=== PATIENT | male | born 1960 | race Caucasian/White ===

== ENCOUNTER 2017-02-12 11:13 | Inpatient (IN) | payer MEDICAID ==
[~2017-02-12] VITALS: Ht 177.8 cm; Wt 67.9 kg
[~2017-02-12 11:13] MED LIST: ALBU18HF INH; ALBU6.7H; AMLO5TAB4 PO; ASPI-621 PO; BACL-19 PO; CLOP75TA22 PO; FERR325T20 PO; FUROCET; GABA100C8 PO; GABA400C PO; GABA800T2 PO; IBUP200T5 PO; LISI-167 PO; LISI-170 PO; METH-356 PO; METH40TA3 PO; METO25TA91 PO; METR500T PO; MORP15TA3; MORP15TA3 PO; OXYC10TA6 PO; SERT100T PO; TOPAMAX; TOPI200T25 PO; TOPI50TA35 PO
[2017-02-12] MEDS ORDERED: ONDANSETRON 2MG/ML, 2ML IVPush ONE (12:30)
[2017-02-12] MEDS ORDERED: SODIUM CHLORIDE 0.9% 1,000ML IVBOLUS ONE (12:30)
[2017-02-12] MEDS ORDERED: SODIUM CHLORIDE FLUSH 10ML SYR IVF ONE (12:30)
[2017-02-12 12:44] LABS: BLOOD UREA NITROGEN 12 mg/dL (7-18)
[2017-02-12] MEDS ORDERED: ONDANSETRON 2MG/ML, 2ML ONE (12:58)
[2017-02-12] MEDS ORDERED: TAMS-11 PO (13:13)
[2017-02-12] MEDS ORDERED: [UNRECOGNIZED DRUG - OTHER] PO (13:13)
[2017-02-12] MEDS ORDERED: POTASSIUM CHLORIDE 20 MEQ TAB.ER.PRT PO ONE (13:30)
[2017-02-12] MEDS ORDERED: NS + 40MEQ KCL 1,000 ML IV SCH (13:30)
[2017-02-12] MEDS ORDERED: NS + 40MEQ KCL 1,000 ML IV ONE (13:36)
[2017-02-12] MEDS ORDERED: POTASSIUM CHLORIDE 20 MEQ TAB.ER.PRT ONE (13:36)
[2017-02-12 13:52] LABS: IS PT STATUS REG ER OR PRE ER? YES
[2017-02-12] MEDS ORDERED: NICOTINE 7 MG/24 HR PATCH.TD24 TD SCH (15:00)
[2017-02-12] MEDS ORDERED: ACETAMINOPHEN 325 MG TABLET PO PRN (15:00)
[2017-02-12] MEDS ORDERED: ONDANSETRON 2MG/ML, 2ML IVP PRN (15:00)
[2017-02-12] MEDS ORDERED: ENOXAPARIN 40 MG/0.4 ML SQ SCH (15:00)
[2017-02-12] MEDS ORDERED: hydrALAzine 20 MG/ML, 1ML IV PRN (15:30)
[2017-02-12] MEDS ORDERED: hydrOXyzine 10MG TABLET PO PRN (15:30)
[2017-02-12] MEDS ORDERED: GABAPENTIN 100 MG CAPSULE PO SCH (16:00)
[2017-02-12] MEDS: BACLOFEN 10 MG TABLET PO SCH ×2 (16:00→23:17)
[2017-02-12] MEDS ORDERED: hydrALAzine 20 MG/ML, 1ML ONE (16:35)
[2017-02-12] MEDS: POTASSIUM CHLORIDE 20 MEQ TAB.ER.PRT PO SCH (17:22)
[2017-02-12] MEDS: POTASSIUM CHLORIDE 40 MEQ in LACTATED RINGERS 1,000 ML IV SCH (17:23)
[2017-02-12] MEDS: LORazepam 2 MG/ML, 1ML IVPush PRN (17:23)
[2017-02-12] MEDS: GABAPENTIN 400 MG CAPSULE PO SCH ×2 (18:03→23:17)
[2017-02-12 18:29] VITALS: BP 138/88
[2017-02-12 19:32] LABS: IS PT STATUS REG ER OR PRE ER? NO
[2017-02-12] MEDS: TOPIRAMATE 100 MG TABLET PO SCH (23:17)
[2017-02-13 00:21] LABS: DAU SCREEN DISCLAIMER
[2017-02-13] MEDS: POTASSIUM CHLORIDE 40 MEQ in LACTATED RINGERS 1,000 ML IV SCH ×2 (00:47→08:30)
[2017-02-13] MEDS: LORazepam 2 MG/ML, 1ML IVPush PRN ×2 (00:47→11:09)
[2017-02-13 01:07] VITALS: BP 152/90
[2017-02-13 01:28] LABS: IS PT STATUS REG ER OR PRE ER? NO
[2017-02-13 05:35] LABS: HEMOGLOBIN 14.4 g/dL (13.7-18.0)
[2017-02-13 05:57] LABS: ASPARTATE AMINO TRANSFERASE 31 U/L (15-37); BLOOD UREA NITROGEN 9 mg/dL (7-18)
[2017-02-13] MEDS ORDERED: METOPROLOL SUCCINATE 25 MG TAB.ER.24H PO SCH (06:00)
[2017-02-13 07:21] VITALS: BP 154/100
[2017-02-13 08:36] LABS: IS PT STATUS REG ER OR PRE ER? NO
[2017-02-13] MEDS: POTASSIUM CHLORIDE 20 MEQ TAB.ER.PRT PO SCH (08:55)
[2017-02-13] MEDS: GABAPENTIN 400 MG CAPSULE PO SCH (08:55)
[2017-02-13] MEDS: TOPIRAMATE 100 MG TABLET PO SCH (08:55)
[2017-02-13] MEDS: BACLOFEN 10 MG TABLET PO SCH (08:55)
[2017-02-13] MEDS ORDERED: TAMSULOSIN 0.4 MG CAP.ER.24H PO SCH (09:00)
[2017-02-13] MEDS ORDERED: SERTRALINE 100MG TABLET PO SCH (09:00)
[2017-02-13] MEDS ORDERED: LISINOPRIL 10 MG TABLET PO SCH (09:00)
[2017-02-13 13:42] LABS: IS PT STATUS REG ER OR PRE ER? NO
== END 2017-02-13 13:30 | disposition left against medical advice (07) | DRG 894 ==
LOC: ED 13:26 → EDIP 14:07 → 4EST 16:10
PROVIDERS: ADMIT Hospitalist; ATTEND Hospitalist
DX: F11.23 Opioid dependence with withdrawal (principal); M62.82 Rhabdomyolysis; D72.829 Elevated white blood cell count, unspecified; E86.0 Dehydration; E87.6 Hypokalemia; F32.9 Major depressive disorder, single episode, unspecified; G40.909 Epilepsy, unspecified, not intractable, without status epilepticus; G89.29 Other chronic pain; H54.42 Blindness, left eye, normal vision right eye; I12.9 Hypertensive chronic kidney disease with stage 1 through stage 4 chronic kidney disease, or unspecified chronic kidney disease; N18.9 Chronic kidney disease, unspecified; I25.10 Atherosclerotic heart disease of native coronary artery without angina pectoris; N40.0 Benign prostatic hyperplasia without lower urinary tract symptoms; F17.210 Nicotine dependence, cigarettes, uncomplicated; R29.6 Repeated falls; M54.2 Cervicalgia; R55 Syncope and collapse; M54.9 Dorsalgia, unspecified; G43.909 Migraine, unspecified, not intractable, without status migrainosus; Z53.21 Procedure and treatment not carried out due to patient leaving prior to being seen by health care provider; B19.20 Unspecified viral hepatitis C without hepatic coma; I51.89 Other ill-defined heart diseases; Z79.899 Other long term (current) drug therapy; Z56.0 Unemployment, unspecified; Z83.3 Family history of diabetes mellitus; Z88.2 Allergy status to sulfonamides; Z88.8 Allergy status to other drugs, medicaments and biological substances; Z88.6 Allergy status to analgesic agent; Z88.0 Allergy status to penicillin; Z91.013 Allergy to seafood
CPT/HCPCS: 36415; 70450; 70551; 71010; 80048; 80053; 80307; 82040; 83735; 84100; 84132; 84484; 85025; 87324; 93005; 93306; 96361; 96374; J1650; J2405; J3480; J0360; J2060; J7030; J7120

== ENCOUNTER 2017-04-08 15:20 | Inpatient (IN) | payer MEDICAID ==
[~2017-04-08] VITALS: Ht 177.8 cm; Wt 67.0 kg
[~2017-04-08 15:20] MED LIST changes: +TAMS-11 PO; +[UNRECOGNIZED DRUG - OTHER] PO
[2017-04-08] MEDS ORDERED: SODIUM CHLORIDE FLUSH 10ML SYR IVF ONE ×2 (16:00→17:30)
[2017-04-08] MEDS ORDERED: NITROGLYCERIN SINGLE TAB 0.4 MG SL PRN (16:00)
[2017-04-08] MEDS ORDERED: ASPIRIN 81 MG TABLET CHEW PO ONE (16:00)
[2017-04-08] MEDS ORDERED: SODIUM CHLORIDE 0.9% 1,000ML IVBOLUS ONE (16:00)
[2017-04-08] MEDS ORDERED: NITROGLYCERIN SINGLE TAB 0.4 MG SL ONE (16:15)
[2017-04-08] MEDS ORDERED: ASPIRIN 81 MG TABLET CHEW ONE (16:16)
[2017-04-08 16:43] LABS: BLOOD UREA NITROGEN 9 mg/dL (7-18)
[2017-04-08 16:50] LABS: IS PT STATUS REG ER OR PRE ER? YES
[2017-04-08] MEDS ORDERED: ONDANSETRON 2MG/ML, 2ML IVPush PRN (18:00)
[2017-04-08] MEDS ORDERED: METOCLOPRAMIDE 5 MG/ML, 2ML IVPush ONE (18:00)
[2017-04-08] MEDS ORDERED: NITROGLYCERIN 0.4 MG BOTTLE (25 TABS) SL PRN (18:00)
[2017-04-08] MEDS ORDERED: BISACODYL 10 MG SUPP PR PRN (18:00)
[2017-04-08] MEDS ORDERED: POLYETHYLENE GLYCOL 17 GM PACKET PO PRN (18:00)
[2017-04-08] MEDS ORDERED: DIPHENHYDRAMINE 50 MG/ML, 1ML IVPush ONE (18:00)
[2017-04-08] MEDS ORDERED: ACETAMINOPHEN 325 MG TABLET PO PRN (18:00)
[2017-04-08] MEDS ORDERED: morphine SULFATE 10 MG/ML, 1ML ONE (18:34)
[2017-04-08] MEDS: morphine SULFATE 10 MG/ML, 1ML IVPush PRN ×2 (18:38→23:23)
[2017-04-08] MEDS ORDERED: ALBUTEROL SULFATE 2.5 MG/3 ML HHN PRN (19:30)
[2017-04-08 20:36] VITALS: BP 147/91
[2017-04-08] MEDS: GABAPENTIN 400 MG CAPSULE PO SCH ×2 (21:00→21:01)
[2017-04-08] MEDS: TOPIRAMATE 100 MG TABLET PO SCH (21:01)
[2017-04-08] MEDS: LISINOPRIL 10 MG TABLET PO SCH (21:01)
[2017-04-08] MEDS: BACLOFEN 10 MG TABLET PO SCH ×2 (21:02→21:07)
[2017-04-08] MEDS: HEPARIN 5,000 UNITS/ML, 1ML SQ SCH (21:03)
[2017-04-08] MEDS: NICOTINE 14MG/24 HR PATCH.TD24 TD SCH (21:03)
[2017-04-08 21:10] VITALS: BP 147/91
[2017-04-08] MEDS: SODIUM CHLORIDE FLUSH 3ML SYRINGE IVF SCH (21:40)
[2017-04-08 22:58] LABS: IS PT STATUS REG ER OR PRE ER? NO
[2017-04-09 02:24] VITALS: BP 146/86
[2017-04-09 04:22] LABS: IS PT STATUS REG ER OR PRE ER? NO
[2017-04-09] MEDS: HEPARIN 5,000 UNITS/ML, 1ML SQ SCH ×3 (04:37→21:10)
[2017-04-09] MEDS: morphine SULFATE 10 MG/ML, 1ML IVPush PRN (04:37)
[2017-04-09] MEDS: ASPIRIN 81 MG TABLET EC PO SCH (04:37)
[2017-04-09 06:30] VITALS: BP 144/91
[2017-04-09] MEDS: METOPROLOL SUCCINATE 25 MG TAB.ER.24H PO SCH (06:37)
[2017-04-09] MEDS ORDERED: METHADONE 10 MG TABLET PO SCH (09:00)
[2017-04-09] MEDS ORDERED: LISINOPRIL 10 MG TABLET PO SCH (09:00)
[2017-04-09] MEDS: SENNA/DOCUSATE TABLET PO SCH (09:00)
[2017-04-09] MEDS ORDERED: OXYcodone IR 5MG TABLET PO PRN (10:00)
[2017-04-09] MEDS: TAMSULOSIN 0.4 MG CAP.ER.24H PO SCH (10:09)
[2017-04-09] MEDS: GABAPENTIN 400 MG CAPSULE PO SCH ×3 (10:09→21:09)
[2017-04-09] MEDS: BACLOFEN 10 MG TABLET PO SCH ×3 (10:09→22:00)
[2017-04-09] MEDS: TOPIRAMATE 100 MG TABLET PO SCH ×2 (10:09→21:10)
[2017-04-09] MEDS: SERTRALINE 100MG TABLET PO SCH (10:09)
[2017-04-09] MEDS: SODIUM CHLORIDE FLUSH 3ML SYRINGE IVF SCH ×2 (10:10→21:00)
[2017-04-09 10:52] VITALS: BP 128/91
[2017-04-09] MEDS: LISINOPRIL 10 MG TABLET PO SCH ×2 (10:53→21:10)
[2017-04-09] MEDS ORDERED: REGADENOSON 0.4 MG/5 ML SYRINGE ONE (12:22)
[2017-04-09] MEDS ORDERED: OMNIPAQUE 350 MG/ML, 100ML BOTTLE ONE (14:25)
[2017-04-09] MEDS ORDERED: OXYcodone IR 5MG TABLET ONE (14:29)
[2017-04-09 14:33] VITALS: BP 100/68
[2017-04-09] MEDS: OXYcodone IR 5MG TABLET PO PRN ×2 (14:34→19:29)
[2017-04-09 18:56] VITALS: BP 116/73
[2017-04-09] MEDS ORDERED: ATORVASTATIN 20 MG TABLET PO SCH (21:00)
[2017-04-09] MEDS: NICOTINE 14MG/24 HR PATCH.TD24 TD SCH (21:11)
[2017-04-09] MEDS: CIPROFLOXACIN/HYDROCORTISONE EAR SUSP 0.2-1%, 10ML LEFT EAR SCH (22:00)
[2017-04-10 01:24] VITALS: BP 99/67
[2017-04-10] MEDS: OXYcodone IR 5MG TABLET PO PRN ×3 (01:26→09:37)
[2017-04-10] MEDS: METOPROLOL SUCCINATE 25 MG TAB.ER.24H PO SCH ×2 (05:09→05:26)
[2017-04-10] MEDS: ASPIRIN 81 MG TABLET EC PO SCH (05:16)
[2017-04-10] MEDS: HEPARIN 5,000 UNITS/ML, 1ML SQ SCH (05:17)
[2017-04-10 05:19] VITALS: BP 118/80
[2017-04-10 08:30] VITALS: BP 104/73
[2017-04-10] MEDS: SENNA/DOCUSATE TABLET PO SCH (09:00)
[2017-04-10] MEDS: SODIUM CHLORIDE FLUSH 3ML SYRINGE IVF SCH (09:00)
[2017-04-10] MEDS: CIPROFLOXACIN/HYDROCORTISONE EAR SUSP 0.2-1%, 10ML LEFT EAR SCH (09:32)
[2017-04-10] MEDS: GABAPENTIN 400 MG CAPSULE PO SCH (09:32)
[2017-04-10] MEDS: BACLOFEN 10 MG TABLET PO SCH (09:33)
[2017-04-10] MEDS: LISINOPRIL 10 MG TABLET PO SCH (09:33)
[2017-04-10] MEDS: TOPIRAMATE 100 MG TABLET PO SCH (09:34)
[2017-04-10] MEDS: TAMSULOSIN 0.4 MG CAP.ER.24H PO SCH (09:34)
[2017-04-10] MEDS: SERTRALINE 100MG TABLET PO SCH (09:35)
[2017-04-10] MEDS ORDERED: ASPI-621 PO (10:27)
[2017-04-10] MEDS ORDERED: OXYC5TAB3 PO (10:27)
[2017-04-10] MEDS ORDERED: CIPR10DR LEFT EAR (10:27)
[2017-04-10] MEDS ORDERED: NICO1PAT4 TD (10:27)
[2017-04-10] MEDS ORDERED: ATOR20TA9 PO (10:27)
[2017-04-10] MEDS ORDERED: GUAI600T53 PO (10:28)
[2017-04-10] MEDS ORDERED: SODI104S3 INH (10:28)
== END 2017-04-10 13:10 | disposition home or self-care (01) | DRG 303 ==
LOC: ED 17:19 → EDIP 17:48 → 5SO 19:09 → 3NE 04-09 18:53
PROVIDERS: ADMIT Internal Medicine; ATTEND Internal Medicine
DX: I25.10 Atherosclerotic heart disease of native coronary artery without angina pectoris (principal); M62.82 Rhabdomyolysis; F11.20 Opioid dependence, uncomplicated; N40.0 Benign prostatic hyperplasia without lower urinary tract symptoms; G40.909 Epilepsy, unspecified, not intractable, without status epilepticus; F32.9 Major depressive disorder, single episode, unspecified; G89.29 Other chronic pain; M54.2 Cervicalgia; I10 Essential (primary) hypertension; G43.909 Migraine, unspecified, not intractable, without status migrainosus; H54.42 Blindness, left eye, normal vision right eye; H60.92 Unspecified otitis externa, left ear; J06.9 Acute upper respiratory infection, unspecified; F17.210 Nicotine dependence, cigarettes, uncomplicated; H93.19 Tinnitus, unspecified ear; Z79.899 Other long term (current) drug therapy; Z88.6 Allergy status to analgesic agent; Z83.3 Family history of diabetes mellitus; Z88.1 Allergy status to other antibiotic agents; Z88.5 Allergy status to narcotic agent; Z88.0 Allergy status to penicillin; Z88.2 Allergy status to sulfonamides; Z88.8 Allergy status to other drugs, medicaments and biological substances
CPT/HCPCS: 36415; 70498; 71010; 78452; 80048; 80061; 82040; 84439; 84443; 84484; 85025; 93005; 93017; 96360; 96361; J1644; J2785; Q9967; A9502; C9898; J1200; J2270; J2765; J7030

== ENCOUNTER 2017-08-20 09:35 | Emergency (ER) | payer MEDICAID ==
[~2017-08-20] VITALS: Ht 177.8 cm; Wt 61.0 kg
[~2017-08-20 09:35] MED LIST changes: +ATOR20TA9 PO; +CIPR10DR LEFT EAR; -CLOP75TA22 PO; +CLOP75TA52 PO; +FERR325T18 PO; -FERR325T20 PO; +GABA-826 PO; -GABA100C8 PO; +GUAI600T80 PO; +IBUP-1484 PO; -IBUP200T5 PO; +NICO-486 TD; +OXYC5TAB3 PO; +SODI104S3 INH
[2017-08-20 09:38] VITALS: BP 128/78
[2017-08-20] MEDS ORDERED: HYDROcodone/APAP 5/325 TABLET ONE (10:19)
[2017-08-20] MEDS ORDERED: HYDROcodone/APAP 5/325 TABLET PO ONE (10:30)
== END 2017-08-20 10:53 | disposition home or self-care (01) ==
LOC: ED 10:30
DX: S60.512A Abrasion of left hand, initial encounter (principal); I10 Essential (primary) hypertension; J44.9 Chronic obstructive pulmonary disease, unspecified; G89.29 Other chronic pain; Z88.0 Allergy status to penicillin; X58.XXXA Exposure to other specified factors, initial encounter; Y93.89 Activity, other specified; Y92.89 Other specified places as the place of occurrence of the external cause; Y99.8 Other external cause status
CPT/HCPCS: 99283

== ENCOUNTER 2017-08-28 21:25 | Emergency (ER) | payer MEDICAID ==
[~2017-08-28] VITALS: Ht 177.8 cm; Wt 64.2 kg
[2017-08-28] MEDS ORDERED: LIDOCAINE 1%, 20ML ONE (22:51)
[2017-08-28] MEDS ORDERED: HYDROcodone/APAP 5/325 TABLET ONE (22:51)
[2017-08-28] MEDS ORDERED: CLINDAMYCIN 150 MG/ML, 6ML IM ONE (23:00)
[2017-08-28] MEDS ORDERED: LIDOCAINE 1%, 10ML INFIL ONE (23:00)
[2017-08-28] MEDS ORDERED: HYDROcodone/APAP 5/325 TABLET PO ONE (23:00)
[2017-08-28 23:17] VITALS: BP 129/94
== END 2017-08-28 23:52 | disposition home or self-care (01) ==
LOC: ED 22:22
DX: L02.416 Cutaneous abscess of left lower limb (principal); I11.9 Hypertensive heart disease without heart failure; I25.10 Atherosclerotic heart disease of native coronary artery without angina pectoris
CPT/HCPCS: 10060; 96372; 99283

== ENCOUNTER 2017-12-07 10:55 | Emergency (ER) | payer MEDICAID ==
[~2017-12-07] VITALS: Ht 177.8 cm; Wt 59.6 kg
[2017-12-07 10:56] VITALS: BP 135/80
[2017-12-07] MEDS ORDERED: ALBUTEROL/IPRATROPIUM 2.5MG/0.5MG, 3 ML NPPB ONE (11:30)
[2017-12-07 12:02] LABS: BASOPHILS # (AUTO) 0.04 x10^3/uL (0-0.1); BASOPHILS % (AUTO) 0 % (0-1); EOSINOPHILS # (AUTO) 0.11 x10^3/uL (0-0.4); EOSINOPHILS % (AUTO) 1 % (1-7); LYMPHOCYTES # (AUTO) 1.92 x10^3/uL (1-3.4); LYMPHOCYTES % (AUTO) 17 % (22-44); MD NO; MEAN CORPUSCULAR HEMOGLOBIN 30.9 pg (27.5-34.5); MEAN CORPUSCULAR HGB CONC 33.7 g/dL (33.2-36.2); MEAN CORPUSCULAR VOLUME 91.7 fL (81-97); MEAN PLATELET VOLUME 7.4 fL (7.4-10.4); MONOCYTES # (AUTO) 1.39 x10^3/uL (0.2-0.8); MONOCYTES % (AUTO) 12 % (2-9); NEUTROPHILS # (AUTO) 8.14 x10^3/uL (1.8-6.8); NEUTROPHILS % (AUTO) 70 % (42-75); PLATELET COUNT 299 x10^3/uL (130-400); RED BLOOD COUNT 4.55 x10^6/uL (4.38-5.82); RED CELL DISTRIBUTION WIDTH 13.7 % (9.4-14.8)
[2017-12-07 12:14] LABS: ALBUMIN 3.4 g/dL (3.4-5.0); ANION GAP 8 mmol/L (5-15); CALCIUM 8.7 mg/dL (8.5-10.1); CHLORIDE 99 mmol/L (98-107)
[2017-12-07 12:18] LABS: ALANINE AMINOTRANSFERASE 47 U/L (12-78); ALKALINE PHOSPHATASE 114 U/L (45-117); BILIRUBIN,TOTAL 0.7 mg/dL (0.2-1.0); CREATININE 2.24 mg/dL (0.7-1.3); TOTAL PROTEIN 7.9 g/dL (6.4-8.2)
[2017-12-07] MEDS ORDERED: ALBUTEROL/IPRATROPIUM 2.5MG/0.5MG, 3 ML ONE (12:30)
[2017-12-07 12:38] LABS: RAPID INFLUENZA A Negative (Negative); RAPID INFLUENZA B Negative (Negative)
[2017-12-07] MEDS ORDERED: AZITHROMYCIN 500 MG TABLET PO ONE (13:00)
[2017-12-07] MEDS ORDERED: DOXYCYCLINE 100MG TABLET PO ONE (13:00)
[2017-12-07] MEDS ORDERED: AZITHROMYCIN 250 MG TABLET ONE (13:18)
[2017-12-07] MEDS ORDERED: DOXYCYCLINE 100MG TABLET ONE (13:19)
== END 2017-12-07 13:57 | disposition home or self-care (01) ==
LOC: ED 13:51
DX: J18.9 Pneumonia, unspecified organism (principal); J44.0 Chronic obstructive pulmonary disease with (acute) lower respiratory infection; I10 Essential (primary) hypertension; G89.29 Other chronic pain; G43.909 Migraine, unspecified, not intractable, without status migrainosus; I25.10 Atherosclerotic heart disease of native coronary artery without angina pectoris; I95.9 Hypotension, unspecified; F17.200 Nicotine dependence, unspecified, uncomplicated; G62.9 Polyneuropathy, unspecified; Z88.0 Allergy status to penicillin
CPT/HCPCS: 36415; 71046; 80053; 83690; 85025; 87400; 94640; 99285; J7620

== ENCOUNTER 2018-07-31 13:42 | Observation (INO) | payer MEDICAID ==
[~2018-07-31] VITALS: Ht 177.8 cm; Wt 65.0 kg
[2018-07-31] MEDS ORDERED: HYDROcodone/APAP 5/325 TABLET ONE (13:58)
[2018-07-31] MEDS ORDERED: HYDROcodone/APAP 5/325 TABLET PO ONE (14:00)
[2018-07-31 14:25] LABS: BASOPHILS # (AUTO) 0.16 x10^3/uL (0-0.1); BASOPHILS % (AUTO) 2 % (0-1); EOSINOPHILS # (AUTO) 0.23 x10^3/uL (0-0.4); EOSINOPHILS % (AUTO) 2 % (1-7); LYMPHOCYTES # (AUTO) 3.17 x10^3/uL (1-3.4); LYMPHOCYTES % (AUTO) 33 % (22-44); MD NO; MEAN CORPUSCULAR HEMOGLOBIN 32.8 pg (27.5-34.5); MEAN CORPUSCULAR VOLUME 96.3 fL (81-97); MEAN PLATELET VOLUME 7.8 fL (7.4-10.4); MONOCYTES # (AUTO) 1.12 x10^3/uL (0.2-0.8); MONOCYTES % (AUTO) 12 % (2-9); NEUTROPHILS # (AUTO) 5.05 x10^3/uL (1.8-6.8); NEUTROPHILS % (AUTO) 52 % (42-75); PLATELET COUNT 209 x10^3/uL (130-400); RED BLOOD COUNT 4.08 x10^6/uL (4.38-5.82); RED CELL DISTRIBUTION WIDTH 15.6 % (9.4-14.8)
[2018-07-31 14:34] LABS: ALANINE AMINOTRANSFERASE 199 U/L (12-78); ALBUMIN 3.1 g/dL (3.4-5.0); ANION GAP 6 mmol/L (5-15); CALCIUM 8.6 mg/dL (8.5-10.1); CHLORIDE 111 mmol/L (98-107); CREATININE 0.93 mg/dL (0.7-1.3)
[2018-07-31 14:36] LABS: ALKALINE PHOSPHATASE 101 U/L (45-117); BILIRUBIN,TOTAL 0.4 mg/dL (0.2-1.0); TOTAL PROTEIN 7.4 g/dL (6.4-8.2)
[2018-07-31 14:37] LABS: ACETAMINOPHEN < 2 mcg/mL (10-30); SALICYLATE LEVEL < 1.7 mg/dL (2.8-20.0)
[2018-07-31 15:07] LABS: AMPHETAMINE SCREEN, URINE Positive (Negative); BARBITURATE SCREEN, URINE Negative (Negative); BENZODIAZEPINE SCREEN, URINE Positive (Negative); CANNABINOID SCREEN, URINE Positive (Negative); COCAINE SCREEN, URINE Negative (Negative); METHADONE SCREEN, URINE Negative (Negative); OPIATE SCREEN, URINE Negative (Negative)
[2018-07-31 15:17] LABS: CULTURE INDICATED? NO; MICROSCOPIC NOT IND
[2018-07-31] MEDS ORDERED: RANI-276 PO (15:45)
[2018-07-31 16:30] LABS: INTERNATIONAL NORMALIZED RATIO 1.04 (0.93-1.1); PROTHROMBIN TIME 10.8 Seconds (9.6-11.5)
[2018-07-31] MEDS ORDERED: POLYETHYLENE GLYCOL 17 GM PACKET PO PRN (16:30)
[2018-07-31] MEDS ORDERED: ONDANSETRON ODT 4 MG PO PRN (16:30)
[2018-07-31] MEDS ORDERED: ACETAMINOPHEN 325 MG TABLET PO PRN (16:30)
[2018-07-31] MEDS ORDERED: ALBUTEROL SULFATE 2.5 MG/3 ML NPPB PRN (16:30)
[2018-07-31 16:40] LABS: FREE T4 (FREE THYROXINE) 1.03 ng/dL (0.76-1.46); THYROID STIMULATING HORMONE 2.17 mIU/L (0.358-3.740)
[2018-07-31] MEDS ORDERED: Albuterol Sulfate (Ventolin Hfa) INH PRN (17:00)
[2018-07-31 17:25] VITALS: BP 136/92
[2018-07-31] MEDS: LORazepam 1MG TABLET PO PRN (17:55)
[2018-07-31] MEDS ORDERED: ZIPRASIDONE 20 MG INJ IM ONE ×2 (19:04→19:30)
[2018-07-31] MEDS: GABAPENTIN 400 MG CAPSULE PO SCH (21:00)
[2018-08-01 08:32] VITALS: BP 119/80
[2018-08-01 08:44] LABS: BASOPHILS # (AUTO) 0.15 x10^3/uL (0-0.1); BASOPHILS % (AUTO) 1 % (0-1); EOSINOPHILS # (AUTO) 0.35 x10^3/uL (0-0.4); EOSINOPHILS % (AUTO) 3 % (1-7); LYMPHOCYTES # (AUTO) 2.54 x10^3/uL (1-3.4); LYMPHOCYTES % (AUTO) 21 % (22-44); MD NO; MEAN CORPUSCULAR HEMOGLOBIN 32.1 pg (27.5-34.5); MEAN CORPUSCULAR HGB CONC 33.8 g/dL (33.2-36.2); MEAN PLATELET VOLUME 7.6 fL (7.4-10.4); MONOCYTES # (AUTO) 0.95 x10^3/uL (0.2-0.8); MONOCYTES % (AUTO) 8 % (2-9); NEUTROPHILS % (AUTO) 67 % (42-75); PLATELET COUNT 206 x10^3/uL (130-400); RED BLOOD COUNT 4.31 x10^6/uL (4.38-5.82); RED CELL DISTRIBUTION WIDTH 15.4 % (9.4-14.8)
[2018-08-01] MEDS: GABAPENTIN 400 MG CAPSULE PO SCH ×3 (08:47→21:00)
[2018-08-01] MEDS: LISINOPRIL 10 MG TABLET PO SCH (08:48)
[2018-08-01] MEDS: SERTRALINE 100MG TABLET PO SCH (08:48)
[2018-08-01 08:52] LABS: ALBUMIN 3.1 g/dL (3.4-5.0); ANION GAP 7 mmol/L (5-15); CALCIUM 8.7 mg/dL (8.5-10.1); CHLORIDE 112 mmol/L (98-107)
[2018-08-01] MEDS: LORazepam 1MG TABLET PO PRN ×2 (08:52→17:01)
[2018-08-01 08:55] LABS: ALANINE AMINOTRANSFERASE 239 U/L (12-78); ALKALINE PHOSPHATASE 86 U/L (45-117); BILIRUBIN,TOTAL 0.6 mg/dL (0.2-1.0); CREATININE 0.95 mg/dL (0.7-1.3); TOTAL PROTEIN 7.5 g/dL (6.4-8.2)
[2018-08-01] MEDS: SENNA/DOCUSATE TABLET PO SCH (08:56)
[2018-08-01] MEDS ORDERED: OXYcodone 5 MG/5 ML ORAL.SOL UDC PO PRN (10:00)
[2018-08-01 20:31] VITALS: BP 138/88
[2018-08-01] MEDS: OLANZAPINE 2.5 MG TABLET PO SCH (21:00)
[2018-08-02 08:00] VITALS: BP_SYST 147; BP_SYST 92; BP_DIAS 53; BP_DIAS 91
[2018-08-02] MEDS: SENNA/DOCUSATE TABLET PO SCH (08:00)
[2018-08-02] MEDS: GABAPENTIN 400 MG CAPSULE PO SCH ×3 (10:33→20:08)
[2018-08-02] MEDS: SERTRALINE 100MG TABLET PO SCH (10:33)
[2018-08-02] MEDS: LISINOPRIL 10 MG TABLET PO SCH (10:34)
[2018-08-02] MEDS: LORazepam 1MG TABLET PO PRN ×2 (10:35→16:21)
[2018-08-02 11:57] VITALS: BP 127/81
[2018-08-02 19:24] VITALS: BP 127/81
[2018-08-02] MEDS: OLANZAPINE 2.5 MG TABLET PO SCH (20:08)
[2018-08-03 07:12] VITALS: BP 143/68
[2018-08-03] MEDS ORDERED: HYDROcodone/APAP 5/325 TABLET ONE (07:26)
[2018-08-03] MEDS ORDERED: HYDROcodone/APAP 5/325 TABLET PO ONE ×2 (07:30→16:30)
[2018-08-03] MEDS: SERTRALINE 100MG TABLET PO SCH (07:53)
[2018-08-03] MEDS: LISINOPRIL 10 MG TABLET PO SCH (07:53)
[2018-08-03] MEDS: GABAPENTIN 400 MG CAPSULE PO SCH ×3 (07:53→20:08)
[2018-08-03] MEDS: SENNA/DOCUSATE TABLET PO SCH (07:54)
[2018-08-03] MEDS: LORazepam 1MG TABLET PO PRN ×3 (08:01→20:08)
[2018-08-03] MEDS: OLANZAPINE 5 MG TABLET PO SCH (20:09)
[2018-08-03 20:28] VITALS: BP 93/65
[2018-08-04 08:03] VITALS: BP 99/67
[2018-08-04] MEDS: GABAPENTIN 400 MG CAPSULE PO SCH ×3 (08:14→20:14)
[2018-08-04] MEDS: SERTRALINE 100MG TABLET PO SCH (08:15)
[2018-08-04] MEDS: SENNA/DOCUSATE TABLET PO SCH (09:00)
[2018-08-04] MEDS: LISINOPRIL 10 MG TABLET PO SCH (09:59)
[2018-08-04] MEDS: LORazepam 1MG TABLET PO PRN ×2 (12:39→18:02)
[2018-08-04 19:39] VITALS: BP 128/72
[2018-08-04] MEDS: OLANZAPINE 5 MG TABLET PO SCH (20:14)
[2018-08-05 08:15] VITALS: BP 114/72
[2018-08-05] MEDS: GABAPENTIN 400 MG CAPSULE PO SCH ×3 (08:17→20:06)
[2018-08-05] MEDS: LISINOPRIL 10 MG TABLET PO SCH (08:17)
[2018-08-05] MEDS: SERTRALINE 50MG TABLET PO SCH (08:17)
[2018-08-05] MEDS: SENNA/DOCUSATE TABLET PO SCH ×2 (08:17→09:00)
[2018-08-05] MEDS: LORazepam 1MG TABLET PO PRN ×2 (11:53→16:31)
[2018-08-05 19:30] VITALS: BP 121/81
[2018-08-05] MEDS: OLANZAPINE 5 MG TABLET PO SCH (20:06)
[2018-08-06] MEDS ORDERED: ALPRazolam 1MG TABLET ONE (01:44)
[2018-08-06] MEDS: LORazepam 1MG TABLET PO PRN (01:45)
[2018-08-06 08:00] VITALS: BP 122/85
[2018-08-06] MEDS: LISINOPRIL 10 MG TABLET PO SCH (08:40)
[2018-08-06] MEDS: SERTRALINE 50MG TABLET PO SCH (08:40)
[2018-08-06] MEDS: SENNA/DOCUSATE TABLET PO SCH (08:40)
[2018-08-06] MEDS: GABAPENTIN 400 MG CAPSULE PO SCH (08:41)
== END 2018-08-06 11:53 | disposition home or self-care (01) ==
LOC: ED 15:11 → EDIP 15:12 → ED 15:18 → 2N 16:43
PROVIDERS: ADMIT Internal Medicine; ATTEND Internal Medicine
DX: R45.851 Suicidal ideations (principal); E11.9 Type 2 diabetes mellitus without complications; E55.9 Vitamin D deficiency, unspecified; F11.10 Opioid abuse, uncomplicated; F12.10 Cannabis abuse, uncomplicated; F15.129 Other stimulant abuse with intoxication, unspecified; F17.210 Nicotine dependence, cigarettes, uncomplicated; F31.9 Bipolar disorder, unspecified; F43.10 Post-traumatic stress disorder, unspecified; G40.909 Epilepsy, unspecified, not intractable, without status epilepticus; G43.909 Migraine, unspecified, not intractable, without status migrainosus; G89.29 Other chronic pain; I10 Essential (primary) hypertension; I25.10 Atherosclerotic heart disease of native coronary artery without angina pectoris; J44.9 Chronic obstructive pulmonary disease, unspecified; N40.0 Benign prostatic hyperplasia without lower urinary tract symptoms; K80.20 Calculus of gallbladder without cholecystitis without obstruction; R45.850 Homicidal ideations; Z79.899 Other long term (current) drug therapy; Z83.3 Family history of diabetes mellitus; Z86.14 Personal history of Methicillin resistant Staphylococcus aureus infection
CPT/HCPCS: 36415; 76700; 80053; 80307; 80329; 81003; 84439; 84443; 85025; 85610; 93005; 96372; 99285; G0378; J3486; G0480

== ENCOUNTER 2018-08-18 10:36 | Observation (INO) | payer MEDICAID ==
[~2018-08-18] VITALS: Ht 177.8 cm; Wt 66.4 kg
[~2018-08-18 10:36] MED LIST changes: +RANI-276 PO
[2018-08-18] MEDS ORDERED: ACETAMINOPHEN 500 MG TABLET ONE (11:29)
[2018-08-18] MEDS ORDERED: ACETAMINOPHEN 500 MG TABLET PO ONE (11:30)
[2018-08-18 11:38] LABS: AMPHETAMINE SCREEN, URINE Positive (Negative); BARBITURATE SCREEN, URINE Negative (Negative); BENZODIAZEPINE SCREEN, URINE Positive (Negative); CANNABINOID SCREEN, URINE Positive (Negative); COCAINE SCREEN, URINE Negative (Negative); METHADONE SCREEN, URINE Negative (Negative); OPIATE SCREEN, URINE Negative (Negative)
[2018-08-18 12:03] LABS: BASOPHILS # (AUTO) 0.08 x10^3/uL (0-0.1); BASOPHILS % (AUTO) 1 % (0-1); EOSINOPHILS # (AUTO) 0.28 x10^3/uL (0-0.4); EOSINOPHILS % (AUTO) 4 % (1-7); LYMPHOCYTES # (AUTO) 1.88 x10^3/uL (1-3.4); LYMPHOCYTES % (AUTO) 27 % (22-44); MD NO; MEAN CORPUSCULAR HGB CONC 34.3 g/dL (33.2-36.2); MEAN CORPUSCULAR VOLUME 96.1 fL (81-97); MEAN PLATELET VOLUME 7.6 fL (7.4-10.4); MONOCYTES # (AUTO) 0.75 x10^3/uL (0.2-0.8); MONOCYTES % (AUTO) 11 % (2-9); NEUTROPHILS # (AUTO) 3.97 x10^3/uL (1.8-6.8); NEUTROPHILS % (AUTO) 57 % (42-75); PLATELET COUNT 247 x10^3/uL (130-400); RED BLOOD COUNT 4.17 x10^6/uL (4.38-5.82); RED CELL DISTRIBUTION WIDTH 15.1 % (9.4-14.8)
[2018-08-18 12:18] LABS: CHLORIDE 109 mmol/L (98-107)
[2018-08-18 12:23] LABS: ANION GAP 7 mmol/L (5-15); CALCIUM 8.7 mg/dL (8.5-10.1); CREATININE 0.86 mg/dL (0.7-1.3)
[2018-08-18 12:26] LABS: SALICYLATE LEVEL < 1.7 mg/dL (2.8-20.0)
[2018-08-18 12:27] LABS: ACETAMINOPHEN < 2 mcg/mL (10-30)
[2018-08-18] MEDS ORDERED: DOCUSATE 100 MG CAPSULE PO PRN (15:00)
[2018-08-18] MEDS ORDERED: ACETAMINOPHEN 325 MG TABLET PO PRN (15:00)
[2018-08-18 15:35] VITALS: BP 125/87
[2018-08-18] MEDS: LORazepam 0.5MG TABLET PO PRN (17:20)
[2018-08-18 21:23] VITALS: BP 137/82
[2018-08-19] MEDS ORDERED: SIMV20TA3 PO (07:46)
[2018-08-19] MEDS ORDERED: SERT50TA PO (07:46)
[2018-08-19] MEDS ORDERED: ASPI-621 PO (07:46)
[2018-08-19] MEDS ORDERED: TAMS0.4C2 PO (07:46)
[2018-08-19] MEDS ORDERED: OLAN5TAB9 PO (07:46)
[2018-08-19] MEDS ORDERED: GABA300C10 PO (07:46)
[2018-08-19] MEDS: LORazepam 0.5MG TABLET PO PRN ×3 (07:49→23:29)
[2018-08-19 08:15] VITALS: BP 112/70
[2018-08-19] MEDS: IBUPROFEN 200 MG TABLET PO PRN (18:14)
[2018-08-19] MEDS ORDERED: OLANZAPINE 5 MG TABLET ONE (18:45)
[2018-08-19] MEDS ORDERED: SERTRALINE 50MG TABLET ONE (18:45)
[2018-08-19] MEDS: SERTRALINE 50MG TABLET PO SCH (18:47)
[2018-08-19] MEDS: GABAPENTIN 300 MG CAPSULE PO SCH ×2 (18:47→23:26)
[2018-08-19] MEDS: OLANZAPINE 5 MG TABLET PO SCH (18:47)
[2018-08-19 19:40] VITALS: BP 138/89
[2018-08-19] MEDS ORDERED: ZIPRASIDONE 20 MG INJ IM ONE (21:00)
[2018-08-19] MEDS ORDERED: GABAPENTIN 300 MG CAPSULE PO SCH (21:00)
[2018-08-20 07:58] VITALS: BP 118/82
[2018-08-20] MEDS: TAMSULOSIN 0.4 MG CAP.ER.24H PO SCH (08:38)
[2018-08-20] MEDS: GABAPENTIN 300 MG CAPSULE PO SCH ×3 (08:39→20:27)
[2018-08-20] MEDS: SERTRALINE 50MG TABLET PO SCH (08:39)
[2018-08-20] MEDS: OLANZAPINE 5 MG TABLET PO SCH (08:39)
[2018-08-20] MEDS: LORazepam 0.5MG TABLET PO PRN ×2 (08:50→16:26)
[2018-08-20] MEDS ORDERED: SERTRALINE 50MG TABLET PO SCH (09:00)
[2018-08-20] MEDS ORDERED: OLANZAPINE 5 MG TABLET PO SCH (09:00)
[2018-08-20] MEDS: IBUPROFEN 200 MG TABLET PO PRN (14:14)
[2018-08-20 20:30] VITALS: BP 151/89
[2018-08-21] MEDS: LORazepam 0.5MG TABLET PO PRN ×2 (07:51→16:59)
[2018-08-21] MEDS: OLANZAPINE 5 MG TABLET PO SCH (07:51)
[2018-08-21] MEDS: TAMSULOSIN 0.4 MG CAP.ER.24H PO SCH (07:51)
[2018-08-21] MEDS: SERTRALINE 50MG TABLET PO SCH (07:51)
[2018-08-21] MEDS: GABAPENTIN 300 MG CAPSULE PO SCH ×3 (07:51→20:14)
[2018-08-21 07:53] VITALS: BP 136/86
[2018-08-21] MEDS: IBUPROFEN 200 MG TABLET PO PRN ×3 (08:39→17:54)
[2018-08-21] MEDS ORDERED: OXYcodone IR 5MG TABLET PO PRN ×2 (18:30→19:30)
[2018-08-21 19:26] VITALS: BP 142/84
[2018-08-22] MEDS: OXYcodone IR 5MG TABLET PO PRN ×3 (03:53→20:01)
[2018-08-22 08:15] VITALS: BP 126/76
[2018-08-22] MEDS: IBUPROFEN 200 MG TABLET PO PRN (08:24)
[2018-08-22] MEDS: SERTRALINE 50MG TABLET PO SCH (08:25)
[2018-08-22] MEDS: GABAPENTIN 300 MG CAPSULE PO SCH ×3 (08:25→21:17)
[2018-08-22] MEDS: TAMSULOSIN 0.4 MG CAP.ER.24H PO SCH (09:00)
[2018-08-22] MEDS: OLANZAPINE 5 MG TABLET PO SCH (09:00)
[2018-08-22] MEDS: LORazepam 0.5MG TABLET PO PRN (15:39)
[2018-08-22 19:37] VITALS: BP 126/78
[2018-08-23] MEDS: OXYcodone IR 5MG TABLET PO PRN ×3 (04:35→19:33)
[2018-08-23 08:00] VITALS: BP 146/90
[2018-08-23] MEDS: TAMSULOSIN 0.4 MG CAP.ER.24H PO SCH (08:24)
[2018-08-23] MEDS: SERTRALINE 50MG TABLET PO SCH (08:24)
[2018-08-23] MEDS: OLANZAPINE 5 MG TABLET PO SCH (08:25)
[2018-08-23] MEDS: GABAPENTIN 300 MG CAPSULE PO SCH ×3 (08:25→20:24)
[2018-08-23] MEDS: LORazepam 0.5MG TABLET PO PRN ×2 (08:30→23:06)
[2018-08-23 19:45] VITALS: BP 107/69
[2018-08-24] MEDS: OXYcodone IR 5MG TABLET PO PRN ×3 (04:19→18:32)
[2018-08-24] MEDS: OLANZAPINE 5 MG TABLET PO SCH (08:05)
[2018-08-24] MEDS: SERTRALINE 50MG TABLET PO SCH (08:05)
[2018-08-24] MEDS: GABAPENTIN 300 MG CAPSULE PO SCH ×3 (08:05→20:21)
[2018-08-24] MEDS: TAMSULOSIN 0.4 MG CAP.ER.24H PO SCH (08:05)
[2018-08-24] MEDS: LORazepam 0.5MG TABLET PO PRN ×2 (08:05→20:21)
[2018-08-24 08:22] VITALS: BP 126/82
[2018-08-24 19:49] VITALS: BP 128/82
[2018-08-25] MEDS: OXYcodone IR 5MG TABLET PO PRN ×4 (02:23→22:02)
[2018-08-25 08:00] VITALS: BP 121/79
[2018-08-25] MEDS: GABAPENTIN 300 MG CAPSULE PO SCH ×3 (08:14→20:04)
[2018-08-25] MEDS: TAMSULOSIN 0.4 MG CAP.ER.24H PO SCH (08:14)
[2018-08-25] MEDS: SERTRALINE 50MG TABLET PO SCH (08:14)
[2018-08-25] MEDS: OLANZAPINE 5 MG TABLET PO SCH (08:15)
[2018-08-25 19:56] VITALS: BP 103/69
[2018-08-26] MEDS: OXYcodone IR 5MG TABLET PO PRN ×4 (03:17→23:53)
[2018-08-26 07:51] VITALS: BP 122/76
[2018-08-26] MEDS: TAMSULOSIN 0.4 MG CAP.ER.24H PO SCH (08:26)
[2018-08-26] MEDS: GABAPENTIN 300 MG CAPSULE PO SCH ×3 (08:27→20:18)
[2018-08-26] MEDS: SERTRALINE 50MG TABLET PO SCH (08:27)
[2018-08-26] MEDS: OLANZAPINE 5 MG TABLET PO SCH (08:27)
[2018-08-26] MEDS: LORazepam 0.5MG TABLET PO PRN ×2 (08:31→20:18)
[2018-08-26 19:59] VITALS: BP 103/65
[2018-08-27] MEDS: OXYcodone IR 5MG TABLET PO PRN (06:23)
[2018-08-27 08:20] VITALS: BP_SYST 130
[2018-08-27] MEDS: SERTRALINE 50MG TABLET PO SCH (09:16)
[2018-08-27] MEDS: OLANZAPINE 5 MG TABLET PO SCH (09:17)
[2018-08-27] MEDS: TAMSULOSIN 0.4 MG CAP.ER.24H PO SCH (09:17)
[2018-08-27] MEDS: GABAPENTIN 300 MG CAPSULE PO SCH (09:17)
== END 2018-08-27 12:18 | disposition home or self-care (01) ==
LOC: ED 12:56 → EDIP 14:03 → INTOOBSV 14:03 → 2N 15:33
PROVIDERS: ADMIT Internal Medicine; ATTEND Internal Medicine
DX: R45.851 Suicidal ideations (principal); G43.909 Migraine, unspecified, not intractable, without status migrainosus; G40.909 Epilepsy, unspecified, not intractable, without status epilepticus; F32.9 Major depressive disorder, single episode, unspecified; F17.200 Nicotine dependence, unspecified, uncomplicated; F15.90 Other stimulant use, unspecified, uncomplicated; B18.2 Chronic viral hepatitis C; G89.11 Acute pain due to trauma; E55.9 Vitamin D deficiency, unspecified; I10 Essential (primary) hypertension; I25.10 Atherosclerotic heart disease of native coronary artery without angina pectoris; J44.9 Chronic obstructive pulmonary disease, unspecified; N40.0 Benign prostatic hyperplasia without lower urinary tract symptoms; Z59.0 Homelessness; Z86.14 Personal history of Methicillin resistant Staphylococcus aureus infection
CPT/HCPCS: 36415; 73060; 80048; 80307; 80329; 82040; 85025; 99285; G0378; G0480

== ENCOUNTER 2019-03-09 18:36 | Emergency (ER) | payer MEDICAID ==
[~2019-03-09] VITALS: Ht 172.7 cm; Wt 61.4 kg
[~2019-03-09 18:36] MED LIST changes: -ASPI-621 PO; +ASPI81TA45 PO; +ATOR20TA37 PO; -ATOR20TA9 PO; +GABA300C10 PO; -GABA800T2 PO; +GABA800T5 PO; -METH-356 PO; +METH10TA2 PO; +OLAN5TAB9 PO; -RANI-276 PO; +RANI-448 PO; +SERT50TA PO; +SIMV20TA3 PO; +TAMS0.4C2 PO
--- NOTE | 2019-03-09 19:03 | NUR ---
PT BEING PLACED ON LEGAL HOLD PER SUPERVISOR WRAPPING ROOM. BREATHALYZER OBTAINED 0.000%.
--- NOTE | 2019-03-09 19:15 | NUR ---
PT BIB [facility] FOR SI X 2 WKS. DENIES HI. TOOK 5 GABAPENTIN PILLS W/ METH. PT STATES PLAN TO OD ON PILLS OR RUN INTO TRAFFIC. PT RESTING IN ROOM. NADN. ROOM SECURED. SITTER REQUESTED. REPORT GIVEN TO JESSICA CARUSO RN.
[2019-03-09 19:59] LABS: BASOPHILS # (AUTO) 0.12 x10^3/uL (0-0.1); BASOPHILS % (AUTO) 2 % (0-1); EOSINOPHILS # (AUTO) 0.11 x10^3/uL (0-0.4); EOSINOPHILS % (AUTO) 2 % (1-7); LYMPHOCYTES # (AUTO) 1.79 x10^3/uL (1-3.4); LYMPHOCYTES % (AUTO) 26 % (22-44); MD NO; MEAN CORPUSCULAR HEMOGLOBIN 31.2 pg (27.5-34.5); MEAN CORPUSCULAR HGB CONC 33.4 g/dL (33.2-36.2); MEAN CORPUSCULAR VOLUME 93.4 fL (81-97); MONOCYTES # (AUTO) 1.17 x10^3/uL (0.2-0.8); MONOCYTES % (AUTO) 17 % (2-9); NEUTROPHILS # (AUTO) 3.65 x10^3/uL (1.8-6.8); NEUTROPHILS % (AUTO) 53 % (42-75); PLATELET COUNT 208 x10^3/uL (130-400); RED CELL DISTRIBUTION WIDTH 15.2 % (9.4-14.8)
[2019-03-09 20:09] LABS: ALANINE AMINOTRANSFERASE 190 U/L (12-78); ALBUMIN 2.9 g/dL (3.4-5.0); ANION GAP 5 mmol/L (5-15); CALCIUM 8.2 mg/dL (8.5-10.1); CHLORIDE 109 mmol/L (98-107); CREATININE 1.02 mg/dL (0.7-1.3)
[2019-03-09 20:11] LABS: ALKALINE PHOSPHATASE 130 U/L (45-117); BILIRUBIN,TOTAL 0.6 mg/dL (0.2-1.0); TOTAL PROTEIN 7.2 g/dL (6.4-8.2)
[2019-03-09 20:14] LABS: ACETAMINOPHEN < 2 mcg/mL (10-30); SALICYLATE LEVEL < 1.7 mg/dL (2.8-20.0)
--- NOTE | 2019-03-09 20:32 | NUR ---
PT SLEEPING. SITTER AT BEDSIDE.
--- NOTE | 2019-03-09 21:59 | NUR ---
PT REMAINS SLEEPING. VSS. SITTER AT BEDSIDE.
--- NOTE | 2019-03-09 23:02 | NUR ---
SPOKE TO [facility] ABOUT ADMIT. THEY STATE CANNOT ACCEPT PT DUE TO HX OF MRSA. ROLLER PRINT TENDER INFORMED.
--- NOTE | 2019-03-09 23:16 | NUR ---
TP RN: PT PLACED ON HOLD. [facility], [facility]
--- NOTE | 2019-03-09 23:21 | NUR ---
PT SLEEPING. URINE SAMPLE OBTAINED. VSS. SITTER AT BEDSIDE.
[2019-03-09 23:33] LABS: AMPHETAMINE SCREEN, URINE Positive (Negative); BARBITURATE SCREEN, URINE Negative (Negative); BENZODIAZEPINE SCREEN, URINE Positive (Negative); CANNABINOID SCREEN, URINE Positive (Negative); COCAINE SCREEN, URINE Negative (Negative); METHADONE SCREEN, URINE Negative (Negative); OPIATE SCREEN, URINE Negative (Negative)
--- NOTE | 2019-03-10 00:27 | NUR ---
PT RESTING WITH SITTER AT BEDSIDE. HOSPITALIST AT BEDSIDE.
[2019-03-10] MEDS: NICOTINE 14MG/24 HR PATCH.TD24 TD SCH (00:30)
[2019-03-10] MEDS ORDERED: ONDANSETRON ODT 4 MG PO PRN (00:30)
[2019-03-10] MEDS ORDERED: LIDODERM 5% PATCH TD PRN (00:30)
[2019-03-10] MEDS ORDERED: BISACODYL 10 MG SUPP PR PRN (00:30)
[2019-03-10] MEDS ORDERED: NICOTINE 14MG/24 HR PATCH.TD24 ONE (00:31)
--- NOTE | 2019-03-10 02:24 | NUR ---
PT REMAINS SLEEPING. VSS. STTER AT BEDSIDE.
--- NOTE | 2019-03-10 03:20 | NUR ---
PT REMAINS SLEEPING WITH SITTER AT BEDSIDE.
--- NOTE | 2019-03-10 04:23 | NUR ---
PT MOVED TO HOSPITAL BED. POC DISCUSSED. PT DENIES FURTHER NEEDS AT THIS TIME. SITTER REMAINS IN PLACE.
--- NOTE | 2019-03-10 05:26 | NUR ---
PT SLEEPING. SITTER AT BEDSIDE.
--- NOTE | 2019-03-10 06:28 | NUR ---
PT INFORMED ON WHAT DAY IT IS. VITALS TAKEN. RESTING IN BED. SITTER AT BEDSIDE.
--- NOTE | 2019-03-10 07:22 | NUR ---
SBAR REPORT FROM MARCELINO CARUSO. PT RESTIONG ON BED WITH EYES CLOSED. RESP NORMAL, EVEN AND UNLABORED. NADN. SITTER IN PLACE WITH EYES ON PT. ROOM SECURED.
--- NOTE | 2019-03-10 08:35 | NUR ---
PT PROVIDED WITH ED SAFETY DIET TRAY.
[2019-03-10] MEDS ORDERED: LIDODERM 5% PATCH TD ONE (08:49)
--- NOTE | 2019-03-10 08:52 | NUR ---
PT C/O R UPPER BACK/NECK PAIN. STATES THIS IS A CHRONIC ISSUE. LIDO PATCH APPLIED PER ORDER. SITTER REMAINS IN PLACE. CALL LIGHT IN REACH.
--- NOTE | 2019-03-10 10:25 | NUR ---
Pt resting on bed. NADN. sitter in place with eyes on pt. room secured. DARIUSZN.
--- NOTE | 2019-03-10 12:07 | NUR ---
TASK RN: PT REMAINS IN BED, NADN AT THIS TIME. PT HAS EQUAL CHEST RISE AND GOOD CAP REFILL. PT APPEARS TO BE SLEEPING COMFORTABLY.
--- NOTE | 2019-03-10 12:25 | NUR ---
TASK RN: PT PROVIDED WITH MEAL TRAY.
--- NOTE | 2019-03-10 12:37 | NUR ---
Note tino in EDM - 03/10/19 at 1255 by SHERRY Pt resting comfortably on gurney. Restraints DC'd by task RN while this RN on break. Pt continues to talk to self. NAD at this time. pt transferred to hospital bed. sitter in place with eyes on pt.
--- NOTE | 2019-03-10 13:36 | NUR ---
PT RESTING ON BED. NADN. RESP EVEN AND UNLABORED. SITTER IN PLACE. ROOM SECURED.
[2019-03-10] MEDS ORDERED: LORazepam 1MG TABLET ONE ×2 (15:03→20:09)
[2019-03-10] MEDS: LORazepam 1MG TABLET PO PRN ×2 (15:04→20:10)
--- NOTE | 2019-03-10 15:26 | NUR ---
PT STATES HE IS IN PAIN AND ANXIOUS. MEDICATED PER ORDER. PT STATED HE WANTS TO SPEAK TO DOCTOR ABOUT HIS PAIN AND THAT "IF IT GETS TOO BAD I WILL SNAP AND GET VIOLENT." PT EDUCATED ON APPROPRIATE BEHAVIOR IN THE ED. PT AGREES. AUTO CLAIMS ADJUSTER CALLED FOR ORDERS. AUTO CLAIMS ADJUSTER STATE SHE WILL COME ASSESS PT.
[2019-03-10] MEDS ORDERED: GABAPENTIN 300 MG CAPSULE PO PRN (16:00)
[2019-03-10] MEDS ORDERED: GABAPENTIN 300 MG CAPSULE PO SCH (16:00)
--- NOTE | 2019-03-10 16:06 | NUR ---
SECURITY DIET TRAY GIVEN TO PAT. LLOYD IN PLACE. PT CALM AND COOPERATIVE AT THIS TIME.
--- NOTE | 2019-03-10 16:33 | NUR ---
MACHINE OPERATOR HAY STACKER A AMANDA TO PT BEDSIDE.
[2019-03-10] MEDS ORDERED: ACETAMINOPHEN 325 MG TABLET PO PRN (17:00)
[2019-03-10] MEDS ORDERED: METHOCARBAMOL 500 MG TABLET PO PRN (17:00)
--- NOTE | 2019-03-10 17:43 | NUR ---
PT RESTING ON [place]. RESP EVEN AND UNLABORED. NADN. SITTER IN PLACE.
--- NOTE | 2019-03-10 18:17 | NUR ---
PT DENIES NEED FOR PRN PAIN MEDICATIONS AT THIS TIME
--- NOTE | 2019-03-10 18:23 | NUR ---
SOC INITIATED, SPOKE TO RADHA, TELEMONITOR IN PLACE.
--- NOTE | 2019-03-10 19:07 | NUR ---
SBAR REPORT TO ESTELA BENSON
--- NOTE | 2019-03-10 19:08 | NUR ---
RECEIVED BS REPORT FROM MARCELINO IRELAND TO ASSUME PT. CARE. PT. RESTING ON HOSPITAL BED WITH NADN, EYES CLOSED. AWAITING TELEPSYCH EVAL PER REPORT. ALL SAFETY MEASURS OSERVED. ROOM SECURED. SITTER IN [place].
--- NOTE | 2019-03-10 20:10 | NUR ---
PT. REPORTS ANXIETY AND FRUSTRATION OVER LEGAL HOLD; DISCUSSED POC WITH PT. PT. C/O OF NECK PAIN AND REPORTS THIS IS CHRONIC. STATES "NONE OF THAT SHIT HELPS" WHEN OFFERED PRN MEDICATIONS FOR PAIN. ALSO OFFERED NON-PHARM PAIN MODALITIES TO WHICH PT. ALSO REFUSING. PT. DENIES ANY OTHER NEEDS FROM THIS RN AT THIS TIME. JESUSTER REMAINS IN [place]. ALL SAFETY MEASURES MAINTAINED. MEDICATED FOR ANXIETY PER JAN.
[2019-03-10] MEDS ORDERED: SIMVASTATIN 20 MG TABLET PO SCH (21:00)
--- NOTE | 2019-03-10 21:17 | NUR ---
REPORT TO SOC MD
--- NOTE | 2019-03-10 21:25 | NUR ---
BOT PLACED IN ROOM AND PT. AWARE THAT TELEPSYCH EVAL IS ABOUT TO START. PT. RESTING ON HOSPITAL BED WITH SAHRA.
--- NOTE | 2019-03-10 21:40 | NUR ---
TELEPSYCH EVAL IN PROCESS NOW.
[2019-03-10 22:21] VITALS: BP 136/88
--- NOTE | 2019-03-10 22:21 | NUR ---
VS UPDATED AND REPORTED TO SOC MD. PT. TO REMAIN ON LEGAL HOLD. PT EATING SNACKS PROVIDED. CONTINUES TO EXPRESS FRUSTRAION OVER PROCESS OF LEGAL HOLD. EMOTIONAL SUPPORT OFFERED. ROOM REMAINS SECURED. SITTER IN [place].
--- NOTE | 2019-03-11 00:23 | NUR ---
PT. RESTING ON HOSPITAL BED IN SUPINE POSITION WITH EYES CLOSED AND NADN. EVEN CHEST RISE AND FALL VISIBLE. SITTER IN VIEW. ROOM SECURED.
[2019-03-11] MEDS ORDERED: NICOTINE 14MG/24 HR PATCH.TD24 ONE (00:27)
--- NOTE | 2019-03-11 01:00 | NUR ---
PT REPORT FROM ESTELA BENSON. THIS RN TO ASSUME CARE OF PT. SITTER IN HALLWAY. ROLLER DOORS IN PLACE.
[2019-03-11] MEDS ORDERED: ACETAMINOPHEN 325 MG TABLET PO PRN (01:30)
[2019-03-11] MEDS ORDERED: LORazepam 1MG TABLET PO PRN (01:30)
[2019-03-11] MEDS ORDERED: hydrALAzine 20 MG/ML, 1ML IVPush PRN (01:30)
[2019-03-11] MEDS: NICOTINE 14MG/24 HR PATCH.TD24 TD SCH (01:43)
--- NOTE | 2019-03-11 02:05 | NUR ---
PT AMB W/ STEADY GAIT TO RR. NO IMMEDIATE NEEDS AT THIS TIME.
--- NOTE | 2019-03-11 03:20 | NUR ---
PT SLEEPING COMFORTABLY ON HOSPTIAL BED. RR EVEN AND UNLABORED. NADN.
--- NOTE | 2019-03-11 04:01 | NUR ---
PT SLEEPING COMFORTABLY ON HOSPTIAL BED. RR EVEN AND UNLABORED. NADN.
--- NOTE | 2019-03-11 04:18 | NUR ---
PT INCREASINGLY AGITATED AND STATES HE PEED ON HIS BED AND IS MAD. STATES HE WANTS COFFEE AND HAS 2 CUPS OF COFFEE AT BEDSIDE. LAST ONE GIVEN APPROXIMATELY AN HOUR AGO PER SITTER REPORT. STATES HE JUST WANTS TO LEAVE AND IS "FED UP WITH THIS WHOLE FUCKING PROCESSED." PT EDUCATED AND CALMED DOWN. LINENS CHANGED AND PT IN SHOWER AT THIS TIME, W/ SITTER AT DOORWAY.
--- NOTE | 2019-03-11 05:16 | NUR ---
PT ASLEEP AT THIS TIME. RR EVEN AND UNLABORED. GIVEN MORE DECAF COFFEE PER SITTER REPORT.
--- NOTE | 2019-03-11 05:54 | NUR ---
PT ASLEEP AT THIS TIME. RR EVEN AND UNLABORED.
--- NOTE | 2019-03-11 07:00 | NUR ---
PT REPORT TO LESLI BENSON.
--- NOTE | 2019-03-11 07:26 | NUR ---
REC BS REPORT PT SLEEPING AT THIS TIME EQUAL RISE AND FALL OF THE CHEST
[2019-03-11] MEDS ORDERED: OLANZAPINE 5 MG TABLET PO SCH (09:00)
[2019-03-11] MEDS ORDERED: TAMSULOSIN 0.4 MG CAP.ER.24H PO SCH (09:00)
[2019-03-11] MEDS ORDERED: LISINOPRIL 10 MG TABLET PO SCH (09:00)
[2019-03-11] MEDS ORDERED: SERTRALINE 50MG TABLET PO SCH (09:00)
[2019-03-11] MEDS ORDERED: GABAPENTIN 400 MG CAPSULE PO SCH (09:00)
[2019-03-11] MEDS ORDERED: BACLOFEN 10 MG TABLET PO SCH (09:00)
[2019-03-11] MEDS ORDERED: ASPIRIN 81 MG TABLET EC PO SCH (09:00)
--- NOTE | 2019-03-11 09:45 | NUR ---
PRIMARY TO THE BS
[2019-03-11] MEDS ORDERED: QUETIAPINE 25MG TABLET PO PRN (10:00)
[2019-03-11] MEDS ORDERED: TAMSULOSIN 0.4 MG CAP.ER.24H ONE (10:04)
[2019-03-11] MEDS ORDERED: ONDANSETRON ODT 4 MG ONE (10:05)
[2019-03-11] MEDS ORDERED: METHOCARBAMOL 500 MG TABLET ONE (10:05)
[2019-03-11] MEDS ORDERED: QUETIAPINE 25MG TABLET ONE (10:05)
[2019-03-11] MEDS ORDERED: ASPIRIN 81 MG TABLET EC ONE (10:05)
[2019-03-11] MEDS ORDERED: ACETAMINOPHEN 325 MG TABLET ONE (10:06)
--- NOTE | 2019-03-11 10:15 | NUR ---
PT REFUSED ICE
--- NOTE | 2019-03-11 10:20 | NUR ---
MEDS GIVEN PER ORDERED ALLERGIES COVER WITH PT PRIOR TO GIVEN PT DENIED ALLERGIES AFTER GIVEN PT THEN REPORTED ALLERGIES TO SEROQUEL AND TYLENOL
[2019-03-11 10:32] LABS: ALANINE AMINOTRANSFERASE 220 U/L (12-78); ALBUMIN 2.7 g/dL (3.4-5.0); ANION GAP 2 mmol/L (5-15); CALCIUM 8.6 mg/dL (8.5-10.1); CHLORIDE 109 mmol/L (98-107); CREATININE 0.93 mg/dL (0.7-1.3)
[2019-03-11 10:33] LABS: ALKALINE PHOSPHATASE 125 U/L (45-117); BILIRUBIN,TOTAL 0.8 mg/dL (0.2-1.0); TOTAL PROTEIN 7.1 g/dL (6.4-8.2)
--- NOTE | 2019-03-11 10:38 | NUR ---
LAB DRAW PERFORMED AND PT MEDICATED BY LESLI BENSON.PT BECAME AGGRESSIVE TOWARDS LAB WHEN IN ROOM. PT EDUCATED ON IMPORTANCE OF THE LAB DRAW. PT BEGAN TO STATE HOW EVERYONE IS LYING TO HIM. PT REASSURED THAT NO LIES WHERE TOLD AND THAT WE ARE HERE TO HELP.
--- NOTE | 2019-03-11 10:41 | NUR ---
PT REFUSES AM VITAL SIGNS AT THIS TIME.
--- NOTE | 2019-03-11 11:18 | NUR ---
[facility] denied patient at this time.
--- NOTE | 2019-03-11 11:31 | NUR ---
REPORT GIVEN TO [facility] AT 1100. [facility] ACCEPTED PT AT THIS TIME. PT TO BE TRANSFERRED PER [facility].
--- NOTE | 2019-03-11 13:16 | NUR ---
SPOKE WITH BRYANT AT [facility]
== END 2019-03-11 13:35 ==
LOC: ED 21:47 → UNDOADMOB 22:42 → EDIP 22:42 → INTOOBSV 22:42 → ED 03-11 13:35
DX: R45.851 Suicidal ideations (principal); J44.9 Chronic obstructive pulmonary disease, unspecified; I10 Essential (primary) hypertension; Z72.9 Problem related to lifestyle, unspecified; F32.9 Major depressive disorder, single episode, unspecified; Z88.0 Allergy status to penicillin; Z88.1 Allergy status to other antibiotic agents; Z88.8 Allergy status to other drugs, medicaments and biological substances; Z59.0 Homelessness
CPT/HCPCS: 36415; 80053; 80307; 80329; 85025; 93005; 99285; Q0162; G0480

== ENCOUNTER 2019-05-26 03:52 | Emergency (ER) | payer MEDICAID ==
[~2019-05-26] VITALS: Ht 177.8 cm; Wt 68.0 kg
[2019-05-26] MEDS ORDERED: OXYcodone/APAP 5/325MG TABLET PO ONE (05:00)
[2019-05-26] MEDS ORDERED: OXYcodone/APAP 5/325MG TABLET ONE (05:01)
--- NOTE | 2019-05-26 05:05 | NUR ---
PT. MEDICATED PER JAN.
--- NOTE | 2019-05-26 05:46 | NUR ---
REPORT TO MARCELINO BARBOZA.
--- NOTE | 2019-05-26 05:47 | NUR ---
PT MOVED TO ED ROOM 14, RESTING CALMLY ON GURNEY, MONITORS APPLIED, SIDERAILS UP X2, CALL LIGHT WITHIN REACH. WHITE SUGAR SUPERVISOR AT BEDSIDE
--- NOTE | 2019-05-26 06:33 | NUR ---
pt resting calmly, call light within reach, awaiting ultrasound result
--- NOTE | 2019-05-26 06:53 | NUR ---
BEDSIDE REPORT FROM TAMRA RN, PT RESTING IN [facility], AWAITING US RESULTS
--- NOTE | 2019-05-26 07:18 | NUR ---
WOUND REDRESSED WITH ADAPTIC AND ROLL GAUZE
[2019-05-26 07:19] VITALS: BP 139/98
== END 2019-05-26 07:24 | disposition home or self-care (01) ==
LOC: ED 04:13
DX: L02.414 Cutaneous abscess of left upper limb (principal); I25.10 Atherosclerotic heart disease of native coronary artery without angina pectoris; J44.9 Chronic obstructive pulmonary disease, unspecified; G43.909 Migraine, unspecified, not intractable, without status migrainosus; I10 Essential (primary) hypertension; Z87.01 Personal history of pneumonia (recurrent); Z72.89 Other problems related to lifestyle
CPT/HCPCS: 99284

== ENCOUNTER 2019-06-20 13:05 | Emergency (ER) | payer MEDICAID ==
[~2019-06-20] VITALS: Ht 177.8 cm; Wt 63.6 kg
[2019-06-20 13:14] VITALS: BP 140/102
== END 2019-06-20 15:15 | disposition home or self-care (01) ==
LOC: ED 13:08
DX: S80.02XA Contusion of left knee, initial encounter (principal); S80.01XA Contusion of right knee, initial encounter; W10.1XXA Fall (on)(from) sidewalk curb, initial encounter; M79.5 Residual foreign body in soft tissue; Y93.89 Activity, other specified; Y92.89 Other specified places as the place of occurrence of the external cause; Y99.8 Other external cause status; I10 Essential (primary) hypertension; J44.9 Chronic obstructive pulmonary disease, unspecified; G43.909 Migraine, unspecified, not intractable, without status migrainosus; F17.200 Nicotine dependence, unspecified, uncomplicated; I25.10 Atherosclerotic heart disease of native coronary artery without angina pectoris; Z86.19 Personal history of other infectious and parasitic diseases
CPT/HCPCS: 99283

== ENCOUNTER 2019-06-24 00:26 | Emergency (ER) | payer MEDICAID ==
[~2019-06-24 00:26] MED LIST changes: -ALBU6.7H; +ALBU6.7H8; -IBUP-1484 PO; +IBUP-1902 PO; +MORP-29; +MORP-29 PO; -MORP15TA3; -MORP15TA3 PO
[2019-07-08] MEDS ORDERED: TAMS-11 PO (17:13)
[2019-07-08] MEDS ORDERED: METO25TA91 PO (17:13)
[2019-07-08] MEDS ORDERED: OLAN10TA9 PO (17:13)
== END 2019-06-24 00:48 | disposition left against medical advice (07) ==
LOC: ED 00:42
DX: M25.561 Pain in right knee (principal); M25.562 Pain in left knee; Z53.21 Procedure and treatment not carried out due to patient leaving prior to being seen by health care provider

== ENCOUNTER 2019-07-05 03:03 | Emergency (ER) | payer MEDICAID ==
[~2019-07-05] VITALS: Ht 177.8 cm; Wt 68.2 kg
[2019-07-05 08:37] VITALS: BP 158/97
== END 2019-07-05 14:37 | disposition other institution (70) ==
LOC: ED 05:50
DX: F32.1 Major depressive disorder, single episode, moderate (principal); F19.951 Other psychoactive substance use, unspecified with psychoactive substance-induced psychotic disorder with hallucinations; Z72.9 Problem related to lifestyle, unspecified; I11.9 Hypertensive heart disease without heart failure; I25.10 Atherosclerotic heart disease of native coronary artery without angina pectoris; J44.9 Chronic obstructive pulmonary disease, unspecified; F17.200 Nicotine dependence, unspecified, uncomplicated
CPT/HCPCS: 36415; 80053; 80307; 85025; 99284

== ENCOUNTER 2019-07-05 12:55 | Inpatient (IN) | payer MEDICAID ==
[~2019-07-05] VITALS: Ht 175.3 cm; Wt 69.0 kg
[2019-07-09 07:27] VITALS: BP 107/72
== END 2019-07-09 09:35 | disposition home or self-care (01) | DRG 750 ==
LOC: 3E 16:32
PROVIDERS: ADMIT Psychiatry & Neurology Psychosomatic Medicine; ATTEND Psychiatry & Neurology Psychosomatic Medicine
DX: F20.0 Paranoid schizophrenia (principal); F15.20 Other stimulant dependence, uncomplicated; R45.851 Suicidal ideations; B19.20 Unspecified viral hepatitis C without hepatic coma; D75.89 Other specified diseases of blood and blood-forming organs; F10.229 Alcohol dependence with intoxication, unspecified; F12.20 Cannabis dependence, uncomplicated; F17.210 Nicotine dependence, cigarettes, uncomplicated; F32.9 Major depressive disorder, single episode, unspecified; G40.909 Epilepsy, unspecified, not intractable, without status epilepticus; G89.29 Other chronic pain; H54.62 Unqualified visual loss, left eye, normal vision right eye; I10 Essential (primary) hypertension; I25.10 Atherosclerotic heart disease of native coronary artery without angina pectoris; K57.32 Diverticulitis of large intestine without perforation or abscess without bleeding; N40.1 Benign prostatic hyperplasia with lower urinary tract symptoms; R33.8 Other retention of urine; Z71.6 Tobacco abuse counseling; Z88.0 Allergy status to penicillin; Z88.8 Allergy status to other drugs, medicaments and biological substances; Z83.3 Family history of diabetes mellitus
CPT/HCPCS: 36415; 74177; 80053; 80061; 80307; 81001; 82140; 82607; 83690; 84443; 85025; 85651; 93005; 99284; Q9967; Q0163

== ENCOUNTER 2019-11-01 12:04 | Inpatient (IN) | payer MEDICAID ==
[~2019-11-01] VITALS: Ht 177.8 cm; Wt 67.8 kg
[~2019-11-01 12:04] MED LIST changes: +OLAN10TA9 PO
[2019-11-01] MEDS ORDERED: ACETAMINOPHEN 325 MG TABLET PO PRN (13:30)
[2019-11-01] MEDS ORDERED: DOCUSATE 100 MG CAPSULE PO PRN (13:30)
[2019-11-01] MEDS ORDERED: ONDANSETRON ODT 4 MG PO PRN (13:30)
[2019-11-01] MEDS ORDERED: BISACODYL 10 MG SUPP PR PRN (13:30)
[2019-11-01] MEDS ORDERED: POLYETHYLENE GLYCOL 17 GM PACKET PO PRN (13:30)
[2019-11-01 14:05] VITALS: BP 132/92
[2019-11-01] MEDS ORDERED: QUETIAPINE 25MG TABLET ONE (15:00)
[2019-11-01] MEDS ORDERED: PLEASE ENTER HEIGHT AND WEIGHT MC SCH (15:00)
[2019-11-01] MEDS: QUETIAPINE 25MG TABLET PO PRN (15:03)
[2019-11-01 16:16] LABS: CHOL/HDL RATIO 3.7; FREE T4 (FREE THYROXINE) 1.33 ng/dL (0.76-1.46); LDL/HDL RATIO 2.1 (0.5-3.0)
[2019-11-02] MEDS: METOPROLOL SUCCINATE 25 MG TAB.ER.24H PO SCH ×2 (05:21→09:00)
[2019-11-02 05:33] LABS: BASOPHILS # (AUTO) 0.09 x10^3/uL (0-0.1); BASOPHILS % (AUTO) 1 % (0-1); EOSINOPHILS # (AUTO) 0.36 x10^3/uL (0-0.4); EOSINOPHILS % (AUTO) 4 % (1-7); LYMPHOCYTES # (AUTO) 2.72 x10^3/uL (1-3.4); LYMPHOCYTES % (AUTO) 33 % (22-44); MD NO; MEAN CORPUSCULAR HGB CONC 32.6 g/dL (33.2-36.2); MEAN CORPUSCULAR VOLUME 98.1 fL (81-97); MEAN PLATELET VOLUME 8.9 fL (7.4-10.4); MONOCYTES # (AUTO) 0.73 x10^3/uL (0.2-0.8); MONOCYTES % (AUTO) 9 % (2-9); NEUTROPHILS # (AUTO) 4.33 x10^3/uL (1.8-6.8); NEUTROPHILS % (AUTO) 53 % (42-75); PLATELET COUNT 166 x10^3/uL (130-400); RED BLOOD COUNT 5.19 x10^6/uL (4.38-5.82); RED CELL DISTRIBUTION WIDTH 16.1 % (9.4-14.8)
[2019-11-02 05:42] LABS: ANION GAP 5 mmol/L (5-15); CALCIUM 9.1 mg/dL (8.5-10.1); CHLORIDE 113 mmol/L (98-107)
[2019-11-02 05:43] LABS: CREATININE 0.93 mg/dL (0.7-1.3)
[2019-11-02] MEDS: TAMSULOSIN 0.4 MG CAP.ER.24H PO SCH (09:00)
[2019-11-02] MEDS: METHADONE INTENSOL 10 MG/ML ORAL CONC PO SCH (11:14)
[2019-11-02] MEDS: DULOXETINE 30 MG CAPSULE.DR PO SCH ×2 (17:20→20:15)
[2019-11-02 19:37] VITALS: BP 119/79
[2019-11-02] MEDS: DIPHENHYDRAMINE 25 MG CAPSULE PO SCH (20:15)
[2019-11-03 07:32] VITALS: BP 94/62
[2019-11-03] MEDS: METHADONE INTENSOL 10 MG/ML ORAL CONC PO SCH (08:44)
[2019-11-03] MEDS: DULOXETINE 30 MG CAPSULE.DR PO SCH ×2 (08:49→20:12)
[2019-11-03] MEDS: TAMSULOSIN 0.4 MG CAP.ER.24H PO SCH (08:49)
[2019-11-03 10:19] LABS: MICROSCOPIC NOT IND
[2019-11-03 10:22] LABS: CULTURE INDICATED? NO
[2019-11-03] MEDS ORDERED: IBUPROFEN 600 MG TABLET ONE (11:35)
[2019-11-03] MEDS ORDERED: IBUPROFEN 200 MG TABLET PO PRN (12:00)
[2019-11-03] MEDS ORDERED: GABAPENTIN 300 MG CAPSULE ONE (17:33)
[2019-11-03] MEDS: GABAPENTIN 300 MG CAPSULE PO SCH ×2 (17:35→20:12)
[2019-11-03 19:00] VITALS: BP 115/75
[2019-11-03] MEDS: DIPHENHYDRAMINE 25 MG CAPSULE PO SCH (20:12)
[2019-11-03] MEDS ORDERED: GABAPENTIN 300 MG CAPSULE PO SCH (21:00)
[2019-11-04] MEDS: METOPROLOL SUCCINATE 25 MG TAB.ER.24H PO SCH (05:32)
[2019-11-04 07:15] VITALS: BP 110/74
[2019-11-04] MEDS: GABAPENTIN 300 MG CAPSULE PO SCH ×3 (09:21→20:17)
[2019-11-04] MEDS: DULOXETINE 30 MG CAPSULE.DR PO SCH ×2 (09:21→20:17)
[2019-11-04] MEDS: METHADONE INTENSOL 10 MG/ML ORAL CONC PO SCH (09:21)
[2019-11-04] MEDS: TAMSULOSIN 0.4 MG CAP.ER.24H PO SCH (09:21)
[2019-11-04] MEDS ORDERED: NICOTINE 14MG/24 HR PATCH.TD24 TD ONE (10:00)
[2019-11-04 19:56] VITALS: BP 113/73
[2019-11-04] MEDS: DIPHENHYDRAMINE 25 MG CAPSULE PO SCH (20:17)
[2019-11-05] MEDS: METOPROLOL SUCCINATE 25 MG TAB.ER.24H PO SCH (05:36)
[2019-11-05 07:45] VITALS: BP 128/79
[2019-11-05] MEDS: GABAPENTIN 300 MG CAPSULE PO SCH ×3 (08:56→20:01)
[2019-11-05] MEDS: TAMSULOSIN 0.4 MG CAP.ER.24H PO SCH (08:56)
[2019-11-05] MEDS: METHADONE INTENSOL 10 MG/ML ORAL CONC PO SCH (08:56)
[2019-11-05] MEDS: DULOXETINE 30 MG CAPSULE.DR PO SCH ×2 (08:56→20:02)
[2019-11-05] MEDS: QUETIAPINE 25MG TABLET PO PRN ×2 (13:55→20:02)
[2019-11-05] MEDS ORDERED: LORazepam 1MG TABLET PO ONE (15:30)
[2019-11-05 19:30] VITALS: BP 124/75
[2019-11-05] MEDS: DIPHENHYDRAMINE 25 MG CAPSULE PO SCH (20:02)
[2019-11-05] MEDS: DOXEPIN 25 MG CAPSULE PO SCH (22:57)
[2019-11-06] MEDS: METOPROLOL SUCCINATE 25 MG TAB.ER.24H PO SCH (05:39)
[2019-11-06 07:25] VITALS: BP 105/66
[2019-11-06] MEDS: GABAPENTIN 300 MG CAPSULE PO SCH ×3 (09:01→21:10)
[2019-11-06] MEDS: TAMSULOSIN 0.4 MG CAP.ER.24H PO SCH (09:01)
[2019-11-06] MEDS: METHADONE INTENSOL 10 MG/ML ORAL CONC PO SCH (09:01)
[2019-11-06] MEDS: DULOXETINE 30 MG CAPSULE.DR PO SCH ×2 (09:01→21:10)
[2019-11-06] MEDS ORDERED: LIDODERM 5% PATCH TD SCH (12:00)
[2019-11-06] MEDS: QUETIAPINE 25MG TABLET PO PRN (13:10)
[2019-11-06 19:08] VITALS: BP 81/61
[2019-11-06] MEDS: LIDODERM 5% PATCH TD SCH (21:10)
[2019-11-06] MEDS: DOXEPIN 25 MG CAPSULE PO SCH (21:10)
[2019-11-06] MEDS: DIPHENHYDRAMINE 25 MG CAPSULE PO SCH (21:10)
[2019-11-07] MEDS ORDERED: LIDODERM REMOVE PATCH NOTE XX SCH
[2019-11-07] MEDS: METOPROLOL SUCCINATE 25 MG TAB.ER.24H PO SCH (06:09)
[2019-11-07 07:24] VITALS: BP 118/75
[2019-11-07] MEDS: LIDODERM REMOVE PATCH NOTE XX SCH (09:00)
[2019-11-07] MEDS: METHADONE INTENSOL 10 MG/ML ORAL CONC PO SCH (09:05)
[2019-11-07] MEDS: GABAPENTIN 300 MG CAPSULE PO SCH ×3 (09:07→20:39)
[2019-11-07] MEDS: DULOXETINE 30 MG CAPSULE.DR PO SCH ×2 (09:08→20:39)
[2019-11-07] MEDS: TAMSULOSIN 0.4 MG CAP.ER.24H PO SCH (09:08)
[2019-11-07] MEDS: hydrOXyzine 50MG TABLET PO PRN ×2 (10:58→20:39)
[2019-11-07] MEDS: NICOTINE 14MG/24 HR PATCH.TD24 TD SCH (10:59)
[2019-11-07] MEDS ORDERED: NICO-486 TD (12:29)
[2019-11-07] MEDS ORDERED: TAMS-11 PO (12:29)
[2019-11-07] MEDS ORDERED: DIPH25CA26 PO (12:29)
[2019-11-07] MEDS ORDERED: METH10OR PO (12:29)
[2019-11-07] MEDS ORDERED: METO25TA91 PO (12:29)
[2019-11-07] MEDS ORDERED: QUET25TA7 PO (12:29)
[2019-11-07] MEDS ORDERED: GABA300C10 PO (12:29)
[2019-11-07] MEDS ORDERED: DULO30CA2 PO (12:29)
[2019-11-07] MEDS: QUETIAPINE 25MG TABLET PO PRN ×2 (13:31→20:39)
[2019-11-07 15:40] VITALS: BP 95/60
[2019-11-07 19:59] VITALS: BP 93/56
[2019-11-07] MEDS: DOXEPIN 25 MG CAPSULE PO SCH (20:39)
[2019-11-07] MEDS: DIPHENHYDRAMINE 25 MG CAPSULE PO SCH (20:39)
[2019-11-07] MEDS: LIDODERM 5% PATCH TD SCH (21:02)
[2019-11-08 07:50] VITALS: BP 111/71
[2019-11-08] MEDS: METOPROLOL SUCCINATE 25 MG TAB.ER.24H PO SCH (08:53)
[2019-11-08] MEDS: DULOXETINE 30 MG CAPSULE.DR PO SCH (08:53)
[2019-11-08] MEDS: TAMSULOSIN 0.4 MG CAP.ER.24H PO SCH (08:54)
[2019-11-08] MEDS: GABAPENTIN 300 MG CAPSULE PO SCH (08:54)
[2019-11-08] MEDS: METHADONE INTENSOL 10 MG/ML ORAL CONC PO SCH (08:55)
[2019-11-08] MEDS: NICOTINE 14MG/24 HR PATCH.TD24 TD SCH (08:55)
[2019-11-08] MEDS: LIDODERM REMOVE PATCH NOTE XX SCH (08:57)
== END 2019-11-08 11:00 | disposition home or self-care (01) | DRG 750 ==
LOC: 3E 14:22
PROVIDERS: ADMIT Psychiatry & Neurology Psychosomatic Medicine; ATTEND Psychiatry & Neurology Psychosomatic Medicine
CPT/HCPCS: 36415; 80048; 80061; 81003; 82607; 82962; 84439; 84443; 85025; Q0163

== ENCOUNTER 2020-05-30 09:03 | Emergency (ER) | payer MEDICAID ==
[~2020-05-30] VITALS: Ht 177.8 cm; Wt 72.2 kg
[~2020-05-30 09:03] MED LIST changes: +DIPH25CA26 PO; +DULO30CA2 PO; +METH10OR PO; +QUET25TA7 PO; -RANI-448 PO; +RANI-460 PO; +SIMV20TA19 PO; -SIMV20TA3 PO
[2020-05-30] MEDS ORDERED: CLINDAMYCIN PMX 600MG/50ML 50 ML IV ONE (10:00)
[2020-05-30] MEDS ORDERED: SODIUM CHLORIDE FLUSH 10ML SYR IVF ONE (10:00)
[2020-05-30] MEDS ORDERED: DIPH,PERTUSS(ACELL),TET VAC/PF 0.5 ML IM-VACC ONE ×2 (10:00→10:13)
--- NOTE | 2020-05-30 10:08 | NUR ---
PT CAME IN CO OF A NON HEALING WOUND ON HIS RIGTH TRAORE. SAYS ITS BEEN GOING FOR ABOUT 2 MONTHS. "I WAS IN THE GARDEN WORKING AND I THOUGHT I FELT SOMETHING BITE ME BUT THERE WAS NO BITE OLAMIDE. A FEW DAYS LATER THERE WAS A RED SPOT." THE WOUND ITSELF IS ABOUT THE SIZE A QUARTER AND IS MOIST AND SEEPING. THE AREA AROUND THE WOND IS RED. PT IS CONNECTED TO MONITORING EQUIPMENT. LABS DRAWN. IV STARTED.
[2020-05-30] MEDS ORDERED: CLINDAMYCIN PMX 600MG/50ML 50 ML ONE (10:13)
[2020-05-30 10:28] LABS: BASOPHILS # (AUTO) 0.11 x10^3/uL (0-0.1); BASOPHILS % (AUTO) 1 % (0-1); EOSINOPHILS # (AUTO) 0.35 x10^3/uL (0-0.4); EOSINOPHILS % (AUTO) 3 % (1-7); LYMPHOCYTES # (AUTO) 2.73 x10^3/uL (1-3.4); LYMPHOCYTES % (AUTO) 23 % (22-44); MD NO; MEAN CORPUSCULAR HEMOGLOBIN 32.1 pg (27.5-34.5); MEAN CORPUSCULAR HGB CONC 32.7 g/dL (33.2-36.2); MEAN CORPUSCULAR VOLUME 98.2 fL (81-97); MEAN PLATELET VOLUME 8.1 fL (7.4-10.4); MONOCYTES # (AUTO) 1.34 x10^3/uL (0.2-0.8); MONOCYTES % (AUTO) 11 % (2-9); NEUTROPHILS % (AUTO) 62 % (42-75); PLATELET COUNT 163 x10^3/uL (130-400); RED BLOOD COUNT 4.82 x10^6/uL (4.38-5.82); RED CELL DISTRIBUTION WIDTH 14.1 % (9.4-14.8)
[2020-05-30 10:29] VITALS: BP 136/84
[2020-05-30 10:41] LABS: ALBUMIN 2.9 g/dL (3.4-5.0); ANION GAP 1 mmol/L (5-15); CALCIUM 8.5 mg/dL (8.5-10.1); CHLORIDE 112 mmol/L (98-107); CREATININE 1.07 mg/dL (0.7-1.3)
[2020-05-30] MEDS ORDERED: morphine SULFATE 10 MG/ML, 1ML IVPush ONE (11:00)
[2020-05-30] MEDS ORDERED: ONDANSETRON 2MG/ML, 2ML IVPush ONE (11:00)
[2020-05-30] MEDS ORDERED: NEOSPORIN OINT. PKT 1 PACKET ONE (11:18)
[2020-05-30 12:01] LABS: HCT (SEDRATE) 47.3 % (39.2-51.8)
== END 2020-05-30 12:12 | disposition home or self-care (01) ==
LOC: ED 10:05
DX: L03.116 Cellulitis of left lower limb (principal); M79.89 Other specified soft tissue disorders; I10 Essential (primary) hypertension; I25.10 Atherosclerotic heart disease of native coronary artery without angina pectoris; Z88.0 Allergy status to penicillin; Z88.2 Allergy status to sulfonamides; Z88.8 Allergy status to other drugs, medicaments and biological substances
CPT/HCPCS: 36415; 80048; 82040; 82962; 85025; 85651; 90471; 90715; 96365; 99285